=== PATIENT | female | born 1945 | race Caucasian/White ===

== ENCOUNTER 2017-01-03 15:10 | Observation (INO) ==
--- NOTE | 2017-01-03 15:15 | Emergency Department Note ---
Disposition Clinical Impression: Episode of syncope, Non-traumatic compression fracture of T4 thoracic vertebra Disposition: Admitted As Inpatient Condition: Good Dizziness HPI - General Chief Complaint: ED Syncope Stated Complaint: Syncope Time Seen by Provider: 01/03/17 15:12 Nursing Notes Reviewed: Yes Vital Signs Reviewed: Yes - Related Data Home Medications Medication Instructions Recorded Confirmed Lactose-Reduced Food [Ensure 237 ml DAILY 01/28/15 01/03/17 Original] ALPRAZolam [Xanax 1 MG Tablet] 1 mg PO BID 03/02/16 01/03/17 Carbidopa/Levodopa [Carbidopa-Levo 2 each PO TID 03/02/16 01/03/17 25-100 mg Odt] Donepezil [Aricept] 10 mg PO HS 06/29/16 01/03/17 Omeprazole [PriLOSEC] 40 mg PO DAILY 09/14/16 01/03/17 Alendronate Sodium [Alendronate 70 mg PO QWEEK 01/03/17 01/03/17 Sodium] Ondansetron HCl [Ondansetron HCl] 4 mg PO QID PRN 01/03/17 01/03/17 Previous Rx's Medication Instructions Recorded Sertraline [Zoloft] 100 mg PO DAILY #90 tablet 04/10/16 Atorvastatin [Lipitor] 10 mg PO HS #30 tablet 08/15/16 Allergies Allergy/AdvReac Type Severity Reaction Status Date / Time No Known Allergies Allergy Verified 09/14/16 14:17 Past Medical History - Past Medical History Medical history: Reports: arthritis, cancer, COPD, GERD Surgical history: Reports: non-contributory Psychiatric history: Reports: depression - Social History Smoking Status: Former smoker Smokeless Tobacco Status: No Alcohol use: Reports: none Drug use: Reports: none Course Vital Signs Temperature 98.0 F 01/03/17 15:12 Pulse Rate 71 01/03/17 15:12 Respiratory Rate 16 01/03/17 15:12 Blood Pressure 133/77 01/03/17 15:12 O2 Sat by Pulse Oximetry 99 01/03/17 15:12 Temperature 97.4 F L 01/03/17 19:21 Pulse Rate 73 01/03/17 19:21 Respiratory Rate 18 01/03/17 19:21 Blood Pressure 142/81 01/03/17 19:21 O2 Sat by Pulse Oximetry 100 01/03/17 19:21 Oxygen Delivery Oxygen Delivery Room Air Dizziness - MDM Narrative Medical decision making narrative: I examined this patient and my medical decision-making was reviewed with the Resident Physician. I agree with the documented findings, disposition and treatment plan as described except to the extent set forth below. Patient was seen and evaluated on arrival with EMS, and Dr. White, agree with his evaluation and management plan, supervise care the patient's stay. Patient had what sounds like a syncopal episode today she was sitting down and this occurred she has had near-syncopal episodes in the past. Medics said there is small amount of vomit seen. She is having no pain at this time. She denies any abdominal pain she says she woke up feeling okay. We will discuss with her also. Cervical Spine CT 01/03/17 15:15 IMPRESSION: No acute abnormality of the cervical spine. Multilevel degenerative disc disease, spondylosis and facet arthropathy as above. Mild anterior wedge compression fracture T4 of indeterminate age. I favor that this is a remote fracture. D/ / Charles Eisenberg MD / Charles Eisenberg MD Interpreting Provider: Charles Eisenberg MD Chest X-Ray 01/03/17 15:15 IMPRESSION: No acute cardiopulmonary disease. Post radiation change in the right hilar region. D/ / Matthew Fitch MD / Matthew Fitch MD Interpreting Provider: Matthew Fitch MD Head CT 01/03/17 15:15 IMPRESSION: Mild atrophy and mild to moderate chronic small vessel ischemic white matter disease. No acute intracranial abnormality. D/ / Charles Eisenberg MD / Charles Eisenberg MD Interpreting Provider: Charles Eisenberg MD 1650 hrs.: Reviewed her images in her labs. Return to bring her in for syncope. She is in agreement with plan. - Lab Data Result diagrams: 01/03/17 15:44 01/03/17 15:44 Lab Results 01/03/17 01/03/17 01/03/17 Range/Units 15:44 15:44 15:44 WBC 9.6 (4.3-11.1) K/mcL RBC 4.19 (3.82-4.97) M/mcL Hgb 12.5 (11.5-15.4) g/dL Hct 37.5 (35.3-44.9) % MCV 89.5 (83.0-100.0) fL MCH 29.8 (28.0-33.3) pg MCHC 33.3 (31.6-35.5) g/dL RDW 12.8 (11.5-14.5) % Plt Count 396 (140-400) K/mcL MPV 8.0 L (9.4-12.4) fL Immature Gran % 0.4 (0-4) % Seg Neutrophils % 84.5 % Lymphocytes % 8.8 % Monocytes % 5.7 % Eosinophils % 0.2 % Basophils % 0.4 % Neutrophils # 8.1 (1.6-8.9) K/mcL Lymphocytes # 0.9 (0.6-4.6) K/mcL Monocytes # 0.6 (0.0-1.3) K/mcL Eosinophils # 0.0 (0.0-0.6) K/mcL Basophils # 0.0 (0.0-0.2) K/mcL Immature Plt Fraction 0.9 L (1.1-6.1) % D-Dimer (0-500) ng/mLFEU Sodium 134 L (136-145) mEq/L Potassium 4.1 (3.5-4.5) mEq/L Chloride 99 (98-109) mEq/L Carbon Dioxide 24 (19-29) mEq/L BUN 8 (7-20) mg/dL Creatinine 0.76 (0.57-1.11) mg/dL Est GFR ( Amer) > 60 (> 60) Est GFR (Non-Af Amer) > 60 (> 60) BUN/Creatinine Ratio 11 (6-26) Glucose 84 (70-99) mg/dL Calculated Osmolality 276 L (280-300) Calcium 9.4 (8.6-10.8) mg/dL Troponin I 0.00 (0-0.03) ng/mL Urine Color (Yellow) Urine Clarity (Clear) Urine pH (5.0-8.0) pH Units Ur Specific [place] (1.010-1.025) Urine Protein (Neg-Trace) mg/dL Urine Glucose (UA) (Normal) mg/dL Urine Ketones (Negative) mg/dL Urine Blood (Negative) Urine Nitrite (Negative) Urine Bilirubin (Negative) Urine Urobilinogen (Normal) mg/dL Ur Leukocyte Esterase (Negative) Ur Culture Indicated? (NO) 01/03/17 01/03/17 Range/Units 15:44 17:05 WBC (4.3-11.1) K/mcL RBC (3.82-4.97) M/mcL Hgb (11.5-15.4) g/dL Hct (35.3-44.9) % MCV (83.0-100.0) fL MCH (28.0-33.3) pg MCHC (31.6-35.5) g/dL RDW (11.5-14.5) % Plt Count (140-400) K/mcL MPV (9.4-12.4) fL Immature Gran % (0-4) % Seg Neutrophils % % Lymphocytes % % Monocytes % % Eosinophils % % Basophils % % Neutrophils # (1.6-8.9) K/mcL Lymphocytes # (0.6-4.6) K/mcL Monocytes # (0.0-1.3) K/mcL Eosinophils # (0.0-0.6) K/mcL Basophils # (0.0-0.2) K/mcL Immature Plt Fraction (1.1-6.1) % D-Dimer 626 H (0-500) ng/mLFEU Sodium (136-145) mEq/L Potassium (3.5-4.5) mEq/L Chloride (98-109) mEq/L Carbon Dioxide (19-29) mEq/L BUN (7-20) mg/dL Creatinine (0.57-1.11) mg/dL Est GFR ( Amer) (> 60) Est GFR (Non-Af Amer) (> 60) BUN/Creatinine Ratio (6-26) Glucose (70-99) mg/dL Calculated Osmolality (280-300) Calcium (8.6-10.8) mg/dL Troponin I (0-0.03) ng/mL Urine Color Yellow (Yellow) Urine Clarity Clear (Clear) Urine pH 7.5 (5.0-8.0) pH Units Ur Specific [place] 1.009 L (1.010-1.025) Urine Protein Negative (Neg-Trace) mg/dL Urine Glucose (UA) Normal (Normal) mg/dL Urine Ketones Trace H (Negative) mg/dL Urine Blood Negative (Negative) Urine Nitrite Negative (Negative) Urine Bilirubin Negative (Negative) Urine Urobilinogen Normal (Normal) mg/dL Ur Leukocyte Esterase Negative (Negative) Ur Culture Indicated? NO (NO)
--- NOTE | 2017-01-03 15:17 | Emergency Department Note ---
Disposition Clinical Impression: Episode of syncope Qualifiers: Syncope type: unspecified Qualified Code(s): R55 - Syncope and collapse Non-traumatic compression fracture of T4 thoracic vertebra Qualifiers: Encounter type: initial encounter Qualified Code(s): M48.54XA - Collapsed vertebra, not elsewhere classified, thoracic region, initial encounter for fracture Disposition: Admitted As Inpatient Condition: Good Referrals: Aram Jackson MD [Primary Care Provider] - Forms: ED Satisfaction Letter Syncope HPI - General Chief Complaint: ED Syncope Stated Complaint: Syncope Time Seen by Provider: 01/03/17 15:12 Source: patient Mode of arrival: EMS Limitations: no limitations Nursing Notes Reviewed: Yes Vital Signs Reviewed: Yes - History of Present Illness HPI Narrative: 71-year-old female history of hyperlipidemia, GERD who presents to the ER via EMS due to a possible syncopal episode. Patient reports that prior to arrival she felt fine this morning that she was sitting down at her table whenever she felt flushed. Patient reports she woke up on the ground not remembering what happened. EMS was called who reports that there was some vomit on the floor as well. Patient reports that she has felt dizzy before and like she was going to pass out but this is the first time she has ever passed out. She denies any prodromal symptoms of chest pain shortness of breath headaches or visual changes. States she did feel flushed. She reports a past medical history of lung cancer in 2011. No history of DVT or PE. She denies a prior cardiac history. She does take 81 mg of aspirin daily. She reports pain to the back of her head and to the right side of her neck. No other complaints. Pt Subjective Complaint: loss of consciousness Onset (ago): [employer] Duration: other (Unknown) Prodromal Symptoms: other ([place] flushed) Witnessed: no Context: at rest Injuries Sustained Associated with Event: neck, head Current Symptoms: weakness History: none Treatments prior to arrival: none Associated trauma secondary to event: No - Related Data Home Medications Medication Instructions Recorded Confirmed Lactose-Reduced Food [Ensure 237 ml DAILY 01/28/15 11/02/16 Original] ALPRAZolam [Xanax 1 MG Tablet] 1 mg PO Q8H PRN 03/02/16 11/02/16 Carbidopa/Levodopa [Carbidopa-Levo 2 each PO TID 03/02/16 11/02/16 25-100 mg Odt] Donepezil [Aricept] 10 mg PO HS 06/29/16 11/02/16 Ondansetron ODT [Zofran ODT] 4 - 8 mg SL Q8HR PRN 06/29/16 11/02/16 Omeprazole [PriLOSEC] 40 mg PO DAILY 09/14/16 11/02/16 Previous Rx's Medication Instructions Recorded Sertraline [Zoloft] 100 mg PO DAILY #90 tablet 04/10/16 Loratadine [Allergy Relief] 10 mg PO DAILY #30 tablet 04/12/16 Atorvastatin [Lipitor] 10 mg PO HS #30 tablet 08/15/16 Allergies Allergy/AdvReac Type Severity Reaction Status Date / Time No Known Allergies Allergy Verified 09/14/16 14:17 All systems ED: reviewed and negative except as stated. Constitutional: Denies: fever Cardiovascular: Denies: chest pain Respiratory: Denies: cough, dyspnea Gastrointestinal: Denies: abdominal pain, nausea, vomiting Musculoskeletal: Reports: neck pain. Denies: back pain Neurological: Reports: weakness. Denies: headache, numbness, paresthesias Past Medical History - Past Medical History Attestation: Yes The following information was validated with the patient. Source: patient Medical history: Reports: arthritis, cancer, COPD, GERD Surgical history: Reports: non-contributory Psychiatric history: Reports: depression - Social History Smoking Status: Former smoker Smokeless Tobacco Status: No Alcohol use: Reports: none Drug use: Reports: none Physical Exam - General Limitations: no limitations General appearance: alert, in no apparent distress - Head Head exam: atraumatic, normocephalic, normal inspection, other (Pain to the right posterior occipital scalp) - Eye Eye exam: Present: normal appearance, EOMI - ENT ENT exam: normal exam - Neck Neck exam: Present: normal inspection, full ROM, tenderness (Tenderness to the right cervical paraspinal muscles.) - Chest Chest inspection: Present: normal inspection, symmetric chest wall rise - Respiratory Respiratory exam: Present: normal lung sounds bilaterally - Cardiovascular Cardiovascular exam: Present: regular rate, normal rhythm, normal heart sounds - Abdominal Exam Abdominal exam: Present: soft, Non-Tender. Absent: tenderness, distention, rigidity - Extremities Exam Extremities exam: Present: normal inspection, full ROM - Expanded Upper Extremity Exam Shoulder exam: Present: normal inspection, full ROM Arm exam: Present: normal inspection, full ROM Elbow exam: Present: normal inspection, full ROM Forearm/Wrist exam: Present: normal inspection, full ROM Hand exam: Present: normal inspection, full ROM Vascular exam: Normal: radial pulse - Expanded Lower Extremity Exam Hip/Pelvis exam: Present: normal inspection, full ROM Upper leg exam: Present: normal inspection, full ROM Knee exam: Present: normal inspection, full ROM Lower leg exam: Present: normal inspection, full ROM Ankle exam: Present: normal inspection, full ROM Foot/toe exam: Present: normal inspection, full ROM Neurovascular/Tendon exam: Absent: motor deficit, sensory deficit - Back Exam Back exam: Present: normal inspection - Neurological Exam Neurological exam: Present: alert, oriented X3, CN II-XII intact. Absent: motor sensory deficit - Expanded Neurological Exam Patient oriented to: Present: person, place, time Speech: Present: fluid speech Cranial nerves: EOM function (II, III, IV, ): Normal, facial sensation (V): Normal, spinal accessory function (XI): Normal, tongue deviation (XII): Normal Motor strength - LUE: 5/5 Motor strength - RUE: 5/5 Motor strength - LLE: 5/5 Motor strength - RLE: 5/5 Sensory exam upper extremity: light touch: Normal Sensory exam lower extremity: light touch: Normal Coma Scale Eye Opening: Spontaneous Coma Scale Motor Response: Obeys Commands Coma Scale Verbal Response: Oriented Coma Scale Total: 15 - Psychiatric Psychiatric exam: Present: normal affect, normal mood - Skin Skin exam: Present: warm, dry, intact, normal color Course Course Narrative: Patient seen and examined. Vital signs reviewed. She feels back to baseline with the exception of weakness. She is having pain to the posterior aspect of her head. Denies a prior history of syncopal episodes or workup. We will obtain an EKG, labs including troponin and d-dimer given her history of PE. We will also obtain a CT scan of her head. The patient will likely require admission for further evaluation. - Reevaluation(s) Reevaluation #1: I discussed results of imaging and lab work with the patient and family present. We reviewed her CT scan, EKG and lab work. They are in agreement with her being admitted to the hospital for further observation and workup. Vital Signs Temperature 98.0 F 01/03/17 15:12 Pulse Rate 71 01/03/17 15:12 Respiratory Rate 16 01/03/17 15:12 Blood Pressure 133/77 01/03/17 15:12 O2 Sat by Pulse Oximetry 99 01/03/17 15:12 Temperature 98.0 F 01/03/17 15:12 Pulse Rate 64 01/03/17 16:24 Respiratory Rate 16 01/03/17 16:24 Blood Pressure 133/95 01/03/17 16:24 O2 Sat by Pulse Oximetry 99 01/03/17 16:24 Oxygen Delivery Oxygen Delivery Room Air Syncope - MDM Narrative Medical decision making narrative: 71-year-old female presents to the ER due to syncopal episode. She is back to baseline by the time she came to the ED with the exception of weakness. Her EKG is nonischemic. CT head shows no acute abnormality. CT of the cervical spine is unremarkable with a question of a remote fracture of T4 wedge deformity. She has no current neurologic deficits. Her d-dimer is elevated but is within normal limits for age adjustment. Troponin is negative. She is currently chest pain-free. Patient and family in agreement with being admitted for further observation and evaluation. Patient accepted to the hospitalist service. - Lab Data Lab results reviewed: Yes I reviewed the patient's lab results. Result diagrams: 01/03/17 15:44 01/03/17 15:44 Lab Results 01/03/17 01/03/17 01/03/17 Range/Units 15:44 15:44 15:44 WBC 9.6 (4.3-11.1) K/mcL RBC 4.19 (3.82-4.97) M/mcL Hgb 12.5 (11.5-15.4) g/dL Hct 37.5 (35.3-44.9) % MCV 89.5 (83.0-100.0) fL MCH 29.8 (28.0-33.3) pg MCHC 33.3 (31.6-35.5) g/dL RDW 12.8 (11.5-14.5) % Plt Count 396 (140-400) K/mcL MPV 8.0 L (9.4-12.4) fL Immature Gran % 0.4 (0-4) % Seg Neutrophils % 84.5 % Lymphocytes % 8.8 % Monocytes % 5.7 % Eosinophils % 0.2 % Basophils % 0.4 % Neutrophils # 8.1 (1.6-8.9) K/mcL Lymphocytes # 0.9 (0.6-4.6) K/mcL Monocytes # 0.6 (0.0-1.3) K/mcL Eosinophils # 0.0 (0.0-0.6) K/mcL Basophils # 0.0 (0.0-0.2) K/mcL Immature Plt Fraction 0.9 L (1.1-6.1) % D-Dimer (0-500) ng/mLFEU Sodium 134 L (136-145) mEq/L Potassium 4.1 (3.5-4.5) mEq/L Chloride 99 (98-109) mEq/L Carbon Dioxide 24 (19-29) mEq/L BUN 8 (7-20) mg/dL Creatinine 0.76 (0.57-1.11) mg/dL Est GFR ( Amer) > 60 (> 60) Est GFR (Non-Af Amer) > 60 (> 60) BUN/Creatinine Ratio 11 (6-26) Glucose 84 (70-99) mg/dL Calculated Osmolality 276 L (280-300) Calcium 9.4 (8.6-10.8) mg/dL Troponin I 0.00 (0-0.03) ng/mL 01/03/17 Range/Units 15:44 WBC (4.3-11.1) K/mcL RBC (3.82-4.97) M/mcL Hgb (11.5-15.4) g/dL Hct (35.3-44.9) % MCV (83.0-100.0) fL MCH (28.0-33.3) pg MCHC (31.6-35.5) g/dL RDW (11.5-14.5) % Plt Count (140-400) K/mcL MPV (9.4-12.4) fL Immature Gran % (0-4) % Seg Neutrophils % % Lymphocytes % % Monocytes % % Eosinophils % % Basophils % % Neutrophils # (1.6-8.9) K/mcL Lymphocytes # (0.6-4.6) K/mcL Monocytes # (0.0-1.3) K/mcL Eosinophils # (0.0-0.6) K/mcL Basophils # (0.0-0.2) K/mcL Immature Plt Fraction (1.1-6.1) % D-Dimer 626 H (0-500) ng/mLFEU Sodium (136-145) mEq/L Potassium (3.5-4.5) mEq/L Chloride (98-109) mEq/L Carbon Dioxide (19-29) mEq/L BUN (7-20) mg/dL Creatinine (0.57-1.11) mg/dL Est GFR ( Amer) (> 60) Est GFR (Non-Af Amer) (> 60) BUN/Creatinine Ratio (6-26) Glucose (70-99) mg/dL Calculated Osmolality (280-300) Calcium (8.6-10.8) mg/dL Troponin I (0-0.03) ng/mL - Radiology Data Radiology results reviewed: Yes I reviewed the patient's radiology results. Cervical Spine CT 01/03/17 15:15 IMPRESSION: No acute abnormality of the cervical spine. Multilevel degenerative disc disease, spondylosis and facet arthropathy as above. Mild anterior wedge compression fracture T4 of indeterminate age. I favor that this is a remote fracture. D/ / Charles Eisenberg MD / Charles Eisenberg MD Interpreting Provider: Charles Eisenberg MD Chest X-Ray 01/03/17 15:15 IMPRESSION: No acute cardiopulmonary disease. Post radiation change in the right hilar region. D/ / Matthew Fitch MD / Matthew Fitch MD Interpreting Provider: Matthew Fitch MD Head CT 01/03/17 15:15 IMPRESSION: Mild atrophy and mild to moderate chronic small vessel ischemic white matter disease. No acute intracranial abnormality. D/ / Charles Eisenberg MD / Charles Eisenberg MD Interpreting Provider: Charles Eisenberg MD - EKG Data EKG attestation: Yes I reviewed and interpreted this EKG. EKG results narrative: EKG demonstrates normal sinus rhythm with a rate of 68 bpm. Normal axis. QTC slightly prolonged at 465. No ST elevations or depressions. No acute ischemic findings. S.B.ADanae - Eric Situation: Demographics, MOA Background: Presenting Complaint, Relevant PMH, Meds, & Allergies Assessment: Vital Signs, Course and respsone to treatment, Exam Concerns, Patient/Family Expectation, Pertinant Lab Results, Outstanding Labs Recommendation: Barrier(s) to disposition, Recommendation based on pending studies, treatments, or consults S.B.A.RKyle Report Given to: Sheila Reyes Repor Time: 17:21
[2017-01-03 15:50] LABS: Basophils % 0.4 %; Eosinophils % 0.2 %; Hematocrit 37.5 % (35.3-44.9); Hemoglobin 12.5 g/dL (11.5-15.4); Immature Granulocytes % 0.4 % (0-4); Immature Platelets 0.9 % (1.1-6.1); Lymphocytes # 0.9 K/mcL (0.6-4.6); Lymphocytes % 8.8 %; Mean Corpuscular HGB Conc 33.3 g/dL (31.6-35.5); Mean Corpuscular Hemoglobin 29.8 pg (28.0-33.3); Mean Corpuscular Volume 89.5 fL (83.0-100.0); Monocytes # 0.6 K/mcL (0.0-1.3); Monocytes % 5.7 %; Neutrophils # 8.1 K/mcL (1.6-8.9); Platelet Count 396 K/mcL (140-400); Red Blood Count 4.19 M/mcL (3.82-4.97); Red Cell Distribution Width 12.8 % (11.5-14.5); Segmented Neutrophils % 84.5 %
[2017-01-03] MEDS ORDERED: 0.9 % Sodium Chloride 1,000 ML IVC ONE (15:56)
[2017-01-03 16:07] LABS: BUN/Creatinine Ratio 11 (6-26); Blood Urea Nitrogen 8 mg/dL (7-20); Calcium 9.4 mg/dL (8.6-10.8); Carbon Dioxide 24 mEq/L (19-29); Chloride 99 mEq/L (98-109); Glucose 84 mg/dL (70-99); Osmolality,Calculated 276 (280-300); Potassium 4.1 mEq/L (3.5-4.5); Sodium 134 mEq/L (136-145); eGFR For African Americans > 60 (> 60); eGFR For Non-African Americans > 60 (> 60)
[2017-01-03 17:15] LABS: Bilirubin,Urine Negative (Negative); Blood,Urine Negative (Negative); Clarity,Urine Clear (Clear); Color,Urine Yellow (Yellow); Glucose,Urine (UA) Normal (Normal); Ketones,Urine Trace mg/dL (Negative); Leukocyte Esterase,Urine Negative (Negative); Nitrite,Urine Negative (Negative); PH,Urine 7.5 pH Units (5.0-8.0); Protein,Urine Negative (Neg-Trace); Specific Gravity,Urine 1.009 (1.010-1.025); Urobilinogen,Urine Normal (Normal)
[2017-01-03] MEDS ORDERED: Ondansetron ODT 4 MG TAB.RAPDIS PO PRN (22:21)
[2017-01-03] MEDS ORDERED: Naloxone 0.4 MG/ML INJ IVP PRN (22:22)
--- NOTE | 2017-01-03 22:31 | Internal Med History&Physical ---
Date of Encounter: 01/03/17 Time of Encounter: 22:27 Assessment and Plan (1) Episode of syncope Current visit: Yes Status: Acute check orthostat, check MRI brain w contrast given hx of SCLC, tele, consider holter pending hospital course Qualifiers: Syncope type: unspecified Qualified Code(s): R55 - Syncope and collapse (2) Parkinson disease Current visit: Yes Status: Acute continue sinemet. Monitor. Doubt related to presentation (3) Depression Current visit: Yes Status: Acute continue med. stable Qualifiers: Major depression recurrence: single episode Active/Remission status: currently active Psychotic features: without psychotic features Qualified Code(s): F32.2 - Major depressive disorder, single episode, severe without psychotic features (4) Dementia Current visit: Yes Status: Acute stable Qualifiers: Dementia type: Alzheimer's disease Qualified Code(s): G30.0 - Alzheimer's disease with early onset; F02.81 - Dementia in other diseases classified elsewhere with behavioral disturbance (5) Small cell lung cancer Current visit: Yes Status: Acute on surveillance, MRI above Qualifiers: Laterality: unspecified laterality Qualified Code(s): C34.90 - Malignant neoplasm of unspecified part of unspecified bronchus or lung Internal Medicine - H&P: HPI Chief complaint: Syncope History of present illness: Ms. Harrison is a 71 year old female with hx of reported SCLC s/p chem-RT to chest and what was described as prophylactic WBRT in [id number], depression, parkinsonism, osteoporosis who preesnts with syncope episode. She was at home today and was sitting around her table when she had a non- specific symptoms of "not feeling well". She later described a "pain around the back of her shoulder and base of the neck before getting real hot/warm". She was unable to recall events after but later found herself lying on the floor with non-bloody emesis on her clothes. She denies any cardiac hx. On review, he notes of being sick in the last several months lately. Her neurologist for her parkinson's is Dr Sanchez EKG rate 68, NSR C-spin CT CXR CT head w/o contrast all w/o acute changes Past Med Surg Social Fam HX - Past Medical History Medical history: arthritis, cancer, COPD, GERD Psychiatric history: depression - Past Surgical History Surgical History: non-contributory - Social History Smoking Status: Former smoker Smokeless Tobacco Status: No Alcohol use: none Drug use: none - Family History Mother Living Status: Still Living Hx Family Endocrine Disorder: Yes (DM) Father Living Status: Hx Family Cardiac Disorders: Yes Maternal Grandmother Living Status: Hx Family Cardiac Disorders: Yes Internal Medicine - H&P: Meds Lactose-Reduced Food [Ensure Original] 237 ml DAILY 01/28/15 [History] ALPRAZolam [Xanax 1 MG Tablet] 1 mg PO BID 03/02/16 [History] Carbidopa/Levodopa [Carbidopa-Levo 25-100 mg Odt] 2 each PO TID 03/02/16 [ History] Sertraline [Zoloft] 100 mg PO DAILY #90 tablet 04/10/16 [Rx] Donepezil [Aricept] 10 mg PO HS 06/29/16 [History] Atorvastatin [Lipitor] 10 mg PO HS #30 tablet 08/15/16 [Rx] Omeprazole [PriLOSEC] 40 mg PO DAILY 09/14/16 [History] Alendronate Sodium [Alendronate Sodium] 70 mg PO QWEEK 01/03/17 [History] Ondansetron HCl [Ondansetron HCl] 4 mg PO QID PRN 01/03/17 [History] 3 Allergy/AdvReac Type Severity Reaction Status Date / Time No Known Allergies Allergy Verified 09/14/16 14:17 All Systems PM: A 10-system review of systems was performed and is negative for pertinent findings except as documented above in the HPI. Review of systems: ROS 14 point review of systems reviewed as best as possible given presentation. Pertinent positive or negative as per HPI or otherwise reviewed as negative - Constitutional Vitals: Temp Pulse Resp BP Pulse Ox 97.4 F L 73 18 142/81 100 01/03/17 19:21 01/03/17 19:21 01/03/17 19:21 01/03/17 19:21 01/03/17 19:21 Exam: General - AAO x 3 Psych - Appropriate affect/speech. No agitation Eyes - TATYANA. Eye lids intact. No scleral icterus ENT - Oral mucosa pink, dentition intact. External ear clear/dry/intact. No thyromegaly Lymphatics - No cervical/inguinal lympadenopathy Neuro - No gross peripheral or central neuro deficits with intact CN 2-12 exam Heart - Sinus. RRR. S1 and S2 present. No added HS/murmurs appreciated. No elevated JVD appreciated. No calf swellings/erythema Lung - Adequate air entry b/l, No crackes/wheezes appreciated GI - Soft, non-tender. No hepatosplenomegaly/ascites. BS+ - No CVA/suprapubic tenderness or palpable bladder distension Skin - Intact. No rash/petechiae/ecchymosis. Warm extremities MSK - Joints with normal ROM. No joint swellings Internal Med - H&P Results - Labs CBC & Chem 7: 01/03/17 15:44 01/03/17 15:44
[2017-01-03] MEDS: 0.9 % Sodium Chloride 1,000 ML IVC SCH (23:03)
[2017-01-03] MEDS: Carbidopa/Levodopa 25/100 TABLET PO SCH (23:03)
[2017-01-03] MEDS: ALPRAZolam 1 MG TABLET PO SCH (23:03)
[2017-01-04] MEDS: *HR* Enoxaparin 30 MG/0.3 ML SYRINGE SQ SCH (06:16)
[2017-01-04 06:38] LABS: Eosinophils % 2.5 %; Immature Granulocytes % 0.4 % (0-4); Lymphocytes % 27.6 %; Mean Corpuscular HGB Conc 33.9 g/dL (31.6-35.5); Mean Corpuscular Hemoglobin 30.2 pg (28.0-33.3); Mean Corpuscular Volume 89.1 fL (83.0-100.0); Mean Platelet Volume 8.2 fL (9.4-12.4); Monocytes % 12.4 %; Platelet Count 282 K/mcL (140-400); Red Blood Count 3.48 M/mcL (3.82-4.97); Segmented Neutrophils % 56.2 %
[2017-01-04 06:39] LABS: Basophils # 0.1 K/mcL (0.0-0.2); Basophils % 0.9 %; Eosinophils # 0.1 K/mcL (0.0-0.6); Lymphocytes # 1.5 K/mcL (0.6-4.6); Monocytes # 0.7 K/mcL (0.0-1.3); Neutrophils # 3.1 K/mcL (1.6-8.9)
[2017-01-04 06:42] LABS: Hemoglobin 10.5 g/dL (11.5-15.4)
[2017-01-04 07:18] LABS: Albumin/Globulin Ratio 1.2 (1.1-2.2); Alkaline Phosphatase 92 Units/L (38-126); Aspartate Amino Transferase 18 Units/L (5-34); BUN/Creatinine Ratio 13 (6-26); Blood Urea Nitrogen 9 mg/dL (7-20); Calcium 8.1 mg/dL (8.6-10.8); Carbon Dioxide 23 mEq/L (19-29); Chloride 106 mEq/L (98-109); Globulin 2.6 g/dL (2.4-3.5); Glucose 76 mg/dL (70-99); Magnesium 1.9 mg/dL (1.6-2.6); Osmolality,Calculated 283 (280-300); Sodium 138 mEq/L (136-145); Total Protein 5.6 g/dL (6.0-8.3); eGFR For African Americans > 60 (> 60); eGFR For Non-African Americans > 60 (> 60)
[2017-01-04 07:19] LABS: Alanine Aminotransferase < 6 Units/L (0-55); Bilirubin,Total < 0.3 mg/dL (0.2-1.2)
[2017-01-04] MEDS ORDERED: ALPRAZolam 1 MG TABLET PO SCH (09:00)
[2017-01-04] MEDS ORDERED: Carbidopa/Levodopa 25/100 TABLET PO SCH (09:00)
[2017-01-04] MEDS: ALPRAZolam 1 MG TABLET PO SCH ×2 (09:03→20:28)
[2017-01-04] MEDS: Carbidopa/Levodopa 25/100 TABLET PO SCH ×3 (09:03→20:36)
[2017-01-04] MEDS: 0.9 % Sodium Chloride 1,000 ML IVC SCH ×2 (09:04→20:28)
--- NOTE | 2017-01-04 09:11 | Internal Med Progress Note ---
<Luis Yang - Last Filed: 01/04/17 14:44> Date of Encounter: 01/04/17 Time of Encounter: 12:00 - Assessment and plan (1) Episode of syncope Current Visit: Yes Status: Acute Assessment and plan: Likely secondary to dehydration 2/2 Vomiting, poor PO intake Patient had CT Head, MRI head, Echo, CT C spine, EKG, and CXR all with out acute changes. Patient had orthostatics performed which were negative. Patient had carotid U/S 1 year ago which showed no plaque so was not repeated this admission. Qualifiers: Syncope type: unspecified Qualified Code(s): R55 - Syncope and collapse (2) Nausea & vomiting Current Visit: Yes Status: Acute Assessment and plan: Patient and daughter report she has been nauseated and vomiting for several months Per [facility] chart rview patient was first seen for this issue in April 2016. She was started on Zofran at that time. Patient had previously been on nexium for this issue with out relief. She reports Zofran has not fixed her problem. Currently on Zofran here in the hospital andhas not been nauseated or vomited. Consider switch in medication. Would avoid Phenergan, reglan, and compazine due to interactions with sinemet. alternatives include aprepitant, dolasetron, or Granisetron However these are expensive. Daughter concerned about Gallbladder since she herself had gallbladder issues, since the N is worsened by food, and since patient has pain in her back. Patient does have some tenderness to palpation in RUQ. Avalos's Sign negative. Consider abd U/S if pain worsens or if N/V return. Qualifiers: Vomiting type: unspecified Vomiting Intractability: unspecified Qualified Code(s): R11.2 - Nausea with vomiting, unspecified (3) Parkinson disease Current Visit: Yes Status: Acute Assessment and plan: Chronic, Stable Continue home meds. (4) Depression Current Visit: Yes Status: Acute Assessment and plan: Chronic Stable Continue home meds Qualifiers: Major depression recurrence: single episode Active/Remission status: currently active Psychotic features: without psychotic features Qualified Code(s): F32.2 - Major depressive disorder, single episode, severe without psychotic features (5) Dementia Current Visit: Yes Status: Acute Assessment and plan: Chronic, Stable. Continue aricept Qualifiers: Dementia type: Alzheimer's disease Qualified Code(s): G30.0 - Alzheimer's disease with early onset; F02.81 - Dementia in other diseases classified elsewhere with behavioral disturbance (6) Small cell lung cancer Current Visit: Yes Status: Acute Assessment and plan: History of SCLC. S/P Chemo and radiation [id number] No mets seen on MRI of brain post radiation changes on CXR. Qualifiers: Laterality: unspecified laterality Qualified Code(s): C34.90 - Malignant neoplasm of unspecified part of unspecified bronchus or lung - Subjective Interval history: 71F c PMHx of Parkinsons, Arthritis, COPD, GERD, Depression, SCLC s/p Chemo/ Radiation in 2013 in remission, reports to the hospital for Syncopal episode that happened yesterday. She was at home alone, she felt lightheaded like she was going to pass out, she sat down and reports thinking of lying down on the couch, but the next thing she remembered she was on the floor and there was vomit on the ground. She is not sure how long she was out. She denies blood in the vomit. The patient reports she has had Nausea and Vomiting for several months and has had poor PO intake. She has also had lots of falls per the daughter. Patient also reports numbness and tingling in her b/l hands but reports this is chronic and has been going on for a long time (per [facility] neurology has Dx her with carapal tunnel). She denies Urinary symptoms, diarrhea , fever, chest pain, abdominal pain, visual changes, incontinence. Today patient is feeling much better. She has not been nauseated nor has she vomited since coming to the hospital. - Constitutional Vitals: Temp Pulse Resp BP Pulse Ox 97.9 F 72 17 130/69 96 01/04/17 07:00 01/04/17 07:00 01/04/17 07:00 01/04/17 07:00 01/04/17 07:00 General appearance: Present: A&O X 3, no acute distress, answers questions appropriately - Head Head exam: Present: atraumatic, normocephalic - Eye Eye exam: Present: EOMI, sclera anicteric Pupils: Present: miosis (b/l), PERRL - ENT ENT exam: Present: mucous membranes moist - Neck Neck exam general surgery: Present: supple, trachea midline - Respiratory Respiratory exam: Present: CTAB. Absent: rales, rhonchi, wheezes - Cardiovascular Cardiovascular exam: Present: RRR, +S1, +S2. Absent: diastolic murmur, gallop, rubs, systolic murmur - GI/Abdominal GI/Abdominal exam: Present: normal bowel sounds, soft, tenderness (mild tenderness to palpation int he RUQ, and suprapubic) - Extremities Exam Extremities exam: Absent: cyanotic, pedal edema, tenderness - Neurological Exam Neurological exam: Present: alert, CN II-XII intact, oriented X3, strengths equal and symetr throughout. Absent: facial droop, speech deficit - Psychiatric Psychiatric exam: Present: normal affect, normal mood - Skin Skin exam: Present: dry, intact, warm Internal Medicine: Result - Labs CBC & Chem 7: 01/04/17 06:05 01/04/17 06:05 Labs: Short CBC 01/04/17 Range/Units 06:05 WBC 5.6 (4.3-11.1) K/mcL Hgb 10.5 L D (11.5-15.4) g/dL Hct 31.0 L (35.3-44.9) % Plt Count 282 (140-400) K/mcL Neutrophils # 3.1 (1.6-8.9) K/mcL BMP 01/04/17 06:05 Sodium 138 Potassium 4.0 Chloride 106 Carbon Dioxide 23 BUN 9 Creatinine 0.68 Glucose 76 Calcium 8.1 L Liver Function 01/04/17 Range/Units 06:05 Total Bilirubin < 0.3 (0.2-1.2) mg/dL AST 18 (5-34) Units/L ALT < 6 (0-55) Units/L Alkaline Phosphatase 92 (38-126) Units/L Albumin 3.0 L (3.5-5.0) g/dL - ABG Interpretation ABG results: PT/INR, D-dimer D-Dimer 626 ng/mLFEU (0-500) H 01/03/17 15:44 Consult Discharge Plan - Plan Referrals: Aram Jackson MD [Primary Care Provider] - 01/11/17 2:15 pm <Azam Hastings P - Last Filed: 01/04/17 18:41> Date of Encounter: 01/04/17 - Constitutional Vitals: Temp Pulse Resp BP Pulse Ox 97.5 F L 70 16 118/72 100 01/04/17 18:23 01/04/17 18:23 01/04/17 18:23 01/04/17 18:23 01/04/17 18:23 Internal Medicine: Result - Labs CBC & Chem 7: 01/04/17 06:05 01/04/17 06:05 Labs: Short CBC 01/04/17 Range/Units 06:05 WBC 5.6 (4.3-11.1) K/mcL Hgb 10.5 L D (11.5-15.4) g/dL Hct 31.0 L (35.3-44.9) % Plt Count 282 (140-400) K/mcL Neutrophils # 3.1 (1.6-8.9) K/mcL BMP 01/04/17 06:05 Sodium 138 Potassium 4.0 Chloride 106 Carbon Dioxide 23 BUN 9 Creatinine 0.68 Glucose 76 Calcium 8.1 L Liver Function 01/04/17 Range/Units 06:05 Total Bilirubin < 0.3 (0.2-1.2) mg/dL AST 18 (5-34) Units/L ALT < 6 (0-55) Units/L Alkaline Phosphatase 92 (38-126) Units/L Albumin 3.0 L (3.5-5.0) g/dL - ABG Interpretation ABG results: PT/INR, D-dimer D-Dimer 626 ng/mLFEU (0-500) H 01/03/17 15:44 - Impressions Impressions Brain MRI 01/04/17 07:54 IMPRESSION: No acute intracranial abnormality. No mass lesion or abnormal intracranial enhancement to suggest intracranial metastasis. Mild to moderate parenchymal volume loss. Mild to moderate chronic microvascular disease. Mild bilateral mastoid effusions and sinus mucosal disease. D/ / Neo Short MD / Neo Short MD Interpreting Provider: Neo Short MD - Attending Attestation I examined this patient and my medical decision-making was reviewed with the Resident Physician. I agree with the documented findings, disposition and treatment plan as described except to the extent set forth below.
[2017-01-05 03:29] LABS: Hematocrit 30.5 % (35.3-44.9); Hemoglobin 10.3 g/dL (11.5-15.4); Mean Corpuscular HGB Conc 33.8 g/dL (31.6-35.5); Mean Corpuscular Hemoglobin 30.2 pg (28.0-33.3); Mean Corpuscular Volume 89.4 fL (83.0-100.0); Mean Platelet Volume 8.7 fL (9.4-12.4); Platelet Count 273 K/mcL (140-400); Red Blood Count 3.41 M/mcL (3.82-4.97); Red Cell Distribution Width 13.1 % (11.5-14.5)
[2017-01-05] MEDS: 0.9 % Sodium Chloride 1,000 ML IVC SCH ×3 (03:40→14:52)
[2017-01-05 03:46] LABS: BUN/Creatinine Ratio 11 (6-26); Blood Urea Nitrogen 8 mg/dL (7-20); Calcium 8.3 mg/dL (8.6-10.8); Carbon Dioxide 24 mEq/L (19-29); Chloride 106 mEq/L (98-109); Glucose 84 mg/dL (70-99); Osmolality,Calculated 282 (280-300); Potassium 3.7 mEq/L (3.5-4.5); Sodium 137 mEq/L (136-145); eGFR For African Americans > 60 (> 60); eGFR For Non-African Americans > 60 (> 60)
[2017-01-05] MEDS: *HR* Enoxaparin 30 MG/0.3 ML SYRINGE SQ SCH (05:32)
[2017-01-05] MEDS: Carbidopa/Levodopa 25/100 TABLET PO SCH ×3 (08:07→20:43)
[2017-01-05] MEDS: ALPRAZolam 1 MG TABLET PO SCH ×2 (08:07→20:43)
--- NOTE | 2017-01-05 08:45 | Electrocardiograph Report ---
[address] [place], [place] [address] Test Date: 2017-01-03 Pat Name: Post Department: 102 Room: 3B14 Gender: F Nutrition Services Assistant: Gautam : 1945 Requested By: Glenroy Wihte Order Number: [id number] Reading MD: Maxim Hoover MD Measurements Intervals [place] Rate: 68 P: 53 CT: 178 QRS: 25 QRSD: 105 T: 48 QT: 449 QTc: 465 Interpretive Statements SINUS RHYTHM Electronically Signed On 01-05-2017 8:43:38 EDT by Maxim Hoover MD
--- NOTE | 2017-01-05 10:29 | Internal Med Progress Note ---
<Luis Yang - Last Filed: 01/05/17 15:14> Date of Encounter: 01/05/17 Time of Encounter: 09:45 - Assessment and plan (1) Episode of syncope Current Visit: Yes Status: Acute Assessment and plan: Likely secondary to dehydration 2/2 Vomiting, poor PO intake Patient had CT Head, MRI head, Echo, CT C spine, EKG, and CXR all with out acute changes. Patient had orthostatics performed which were negative. Patient had carotid U/S 1 year ago which showed no plaque so was not repeated this admission. Qualifiers: Syncope type: unspecified Qualified Code(s): R55 - Syncope and collapse (2) Nausea & vomiting Current Visit: Yes Status: Acute Assessment and plan: Chronic. Unclear etiology. Sounds like reflux based on story. No hiatal hernia seen on CXR. Patient and daughter report she has been nauseated and vomiting for several months Per [facility] chart rview patient was first seen for this issue in April 2016. She was started on Zofran at that time. Patient had previously been on nexium for this issue with out relief. She reports Zofran has not fixed her problem. Patient Consider switch in medication. Would avoid Phenergan, reglan, and compazine due to interactions with sinemet. alternatives include aprepitant, dolasetron, or Granisetron However these are expensive. Consider Pyridoxine if zofran continues to not work. Daughter concerned about Gallbladder since she herself had gallbladder issues, since the N is worsened by food, and since patient has pain in her back. Patient does have some tenderness to palpation in RUQ. Avalos's Sign negative. Will obtain abd U/S since N/V has returned. Will d/c home tomorrow if negative. Will need outpatient GI follow up. Qualifiers: Vomiting type: unspecified Vomiting Intractability: unspecified Qualified Code(s): R11.2 - Nausea with vomiting, unspecified (3) Parkinson disease Current Visit: Yes Status: Acute Assessment and plan: Chronic, Stable -Continue home meds. (4) Depression Current Visit: Yes Status: Acute Assessment and plan: Chronic Stable -Continue home meds Qualifiers: Depression Type: major depressive disorder Major depression recurrence: single episode Active/Remission status: currently active Major depression episode severity: severe Psychotic features: without psychotic features Qualified Code(s): F32.2 - Major depressive disorder, single episode, severe without psychotic features (5) Dementia Current Visit: Yes Status: Acute Assessment and plan: Chronic, Stable. -Continue aricept Qualifiers: Dementia type: Alzheimer's disease Alzheimer's disease onset: unspecified onset Dementia behavioral disturbance: without behavioral disturbance Qualified Code(s): G30.9 - Alzheimer's disease, unspecified; F02.80 - Dementia in other diseases classified elsewhere without behavioral disturbance (6) Small cell lung cancer Current Visit: Yes Status: Acute Assessment and plan: -History of SCLC. S/P Chemo and radiation [id number] -No mets seen on MRI of brain -post radiation changes on CXR. Qualifiers: Laterality: unspecified laterality Qualified Code(s): C34.90 - Malignant neoplasm of unspecified part of unspecified bronchus or lung - Subjective Interval history: Patient reports feeling worse than yesterday. Her Nausea has returned and she spit up a small amount. Patient feels week and family reports she does not seem 100% and are concerned about her gallbladder. - Constitutional Vitals: Temp Pulse Resp BP Pulse Ox 97.7 F 62 14 123/83 99 01/05/17 06:39 01/05/17 06:39 01/05/17 06:39 01/05/17 06:39 01/05/17 06:39 General appearance: Present: A&O X 3, no acute distress, answers questions appropriately - Head Head exam: Present: atraumatic, normocephalic - Eye Eye exam: Present: PERRL, sclera anicteric - ENT ENT exam: Present: mucous membranes moist - Neck Neck exam general surgery: Present: supple, trachea midline - Respiratory Respiratory exam: Present: CTAB. Absent: rales, rhonchi, wheezes - Cardiovascular Cardiovascular exam: Present: RRR, +S1, +S2. Absent: diastolic murmur, gallop, rubs, systolic murmur - GI/Abdominal GI/Abdominal exam: Present: normal bowel sounds, soft, tenderness (mild suprapubic and RUQ) - Extremities Exam Extremities exam: Absent: calf tenderness, cyanotic, pedal edema - Neurological Exam Neurological exam: Present: alert, CN II-XII intact, oriented X3, no focal deficits, strengths equal and symetr throughout. Absent: facial droop, speech deficit - Psychiatric Psychiatric exam: Present: normal affect, normal mood - Skin Skin exam: Present: dry, intact, warm Internal Medicine: Result - Labs CBC & Chem 7: 01/05/17 02:32 01/05/17 02:32 Labs: Short CBC 01/05/17 Range/Units 02:32 WBC 5.8 (4.3-11.1) K/mcL Hgb 10.3 L (11.5-15.4) g/dL Hct 30.5 L (35.3-44.9) % Plt Count 273 (140-400) K/mcL BMP 01/05/17 02:32 Sodium 137 Potassium 3.7 Chloride 106 Carbon Dioxide 24 BUN 8 Creatinine 0.72 Glucose 84 Calcium 8.3 L - ABG Interpretation ABG results: PT/INR, D-dimer D-Dimer 626 ng/mLFEU (0-500) H 01/03/17 15:44 - Impressions Impressions Brain MRI 01/04/17 07:54 IMPRESSION: No acute intracranial abnormality. No mass lesion or abnormal intracranial enhancement to suggest intracranial metastasis. Mild to moderate parenchymal volume loss. Mild to moderate chronic microvascular disease. Mild bilateral mastoid effusions and sinus mucosal disease. D/ / Neo Short MD / Neo Short MD Interpreting Provider: Neo Short MD Consult Discharge Plan - Plan Referrals: Aram Jackson MD [Primary Care Provider] - 01/11/17 2:15 pm <Azam Hastings P - Last Filed: 01/05/17 18:20> Date of Encounter: 01/05/17 - Constitutional Vitals: Temp Pulse Resp BP Pulse Ox 98.1 F 67 14 131/79 98 01/05/17 14:38 01/05/17 14:38 01/05/17 14:38 01/05/17 14:38 01/05/17 14:38 Internal Medicine: Result - Labs CBC & Chem 7: 01/05/17 02:32 01/05/17 02:32 Labs: Short CBC 01/05/17 Range/Units 02:32 WBC 5.8 (4.3-11.1) K/mcL Hgb 10.3 L (11.5-15.4) g/dL Hct 30.5 L (35.3-44.9) % Plt Count 273 (140-400) K/mcL BMP 01/05/17 02:32 Sodium 137 Potassium 3.7 Chloride 106 Carbon Dioxide 24 BUN 8 Creatinine 0.72 Glucose 84 Calcium 8.3 L - ABG Interpretation ABG results: PT/INR, D-dimer D-Dimer 626 ng/mLFEU (0-500) H 01/03/17 15:44 - Impressions Impressions Gallbladder Ultrasound 01/05/17 15:00 IMPRESSION: Normal right upper quadrant ultrasound. D/ / Estevan Chaidez MD / Estevan Chaidez MD Interpreting Provider: Estevan Chaidze MD - Attending Attestation I examined this patient and my medical decision-making was reviewed with the Resident Physician. I agree with the documented findings, disposition and treatment plan as described except to the extent set forth below.
[2017-01-06] MEDS: 0.9 % Sodium Chloride 1,000 ML IVC SCH (01:00)
[2017-01-06] MEDS: *HR* Enoxaparin 30 MG/0.3 ML SYRINGE SQ SCH (06:22)
[2017-01-06 07:25] VITALS: BP 131/73
--- NOTE | 2017-01-06 07:30 | Discharge Summary ---
<Luis Yang - Last Filed: 01/06/17 08:16> Date of Encounter: 01/06/17 Time of Encounter: 08:00 - Discharge Diagnosis (1) Episode of syncope Priority: Primary Status: Acute Qualifiers: Syncope type: unspecified Qualified Code(s): R55 - Syncope and collapse (2) Nausea & vomiting Priority: Secondary Status: Chronic Qualifiers: Vomiting type: unspecified Vomiting Intractability: unspecified Qualified Code(s): R11.2 - Nausea with vomiting, unspecified (3) Parkinson disease Priority: Secondary Status: Chronic (4) Depression Priority: Secondary Status: Chronic Qualifiers: Depression Type: major depressive disorder Major depression recurrence: single episode Active/Remission status: currently active Major depression episode severity: severe Psychotic features: without psychotic features Qualified Code(s): F32.2 - Major depressive disorder, single episode, severe without psychotic features (5) Dementia Priority: Secondary Status: Chronic Qualifiers: Dementia type: Alzheimer's disease Alzheimer's disease onset: unspecified onset Dementia behavioral disturbance: without behavioral disturbance Qualified Code(s): G30.9 - Alzheimer's disease, unspecified; F02.80 - Dementia in other diseases classified elsewhere without behavioral disturbance (6) Small cell lung cancer Priority: Secondary Status: Chronic Qualifiers: Laterality: unspecified laterality Qualified Code(s): C34.90 - Malignant neoplasm of unspecified part of unspecified bronchus or lung - Discharge Medications Home Medications: Lactose-Reduced Food [Ensure Original] 237 ml DAILY 01/28/15 [History] ALPRAZolam [Xanax 1 MG Tablet] 1 mg PO BID 03/02/16 [History] Carbidopa/Levodopa [Carbidopa-Levo 25-100 mg Odt] 2 each PO TID 03/02/16 [ History] Sertraline [Zoloft] 100 mg PO DAILY #90 tablet 04/10/16 [Rx] Donepezil [Aricept] 10 mg PO HS 06/29/16 [History] Atorvastatin [Lipitor] 10 mg PO HS #30 tablet 08/15/16 [Rx] Omeprazole [PriLOSEC] 40 mg PO DAILY 09/14/16 [History] Alendronate Sodium 70 mg PO QWEEK 01/03/17 [History] Ondansetron HCl 4 mg PO QID PRN 01/03/17 [History] Allergies/Adverse Reactions: 3 Allergy/AdvReac Type Severity Reaction Status Date / Time No Known Allergies Allergy Verified 09/14/16 14:17 Procedures/tests Complete & Pending: Procedures Performed prior 72 hours Category Date Time Status GB ultrasound [US gall bladder] [US] Routine Exams 01/05/17 15:00 Completed MR head/brain wo/w con [MR] Routine MRI 01/04/17 07:54 Completed EV echocardiogram Routine Y 01/04/17 22:[address] C-Spine: "FINDINGS: BONES/ALIGNMENT: There is mild anterior wedge configuration of T4 and there is a minimal degenerative anterolisthesis of T3 on T4. Cervical vertebral body heights and alignment are normal. No evidence of an acute cervical spine fracture. Facet joints are normally aligned. DEGENERATIVE CHANGES: There are degenerative changes throughout the cervical spine. At C3-C4, there is moderate disc space narrowing with mild diffuse spondylosis. There is mild disc space narrowing at C4-C5. There is moderate disc space narrowing and moderate diffuse spondylosis at C5-C6 and C6-C7. There is a broad-based mixed protrusion C5-C6 causing minimal mass effect on the cervical spinal cord. There is multilevel facet arthropathy most pronounced in the mid cervical spine and in the upper thoracic spine. SOFT TISSUES: There is no prevertebral soft tissue swelling. CT/CT cervical spine wo con IMPRESSION: No acute abnormality of the cervical spine. Multilevel degenerative disc disease, spondylosis and facet arthropathy as above. Mild anterior wedge compression fracture T4 of indeterminate age. I favor that this is a remote fracture." Ct Head: "FINDINGS: BRAIN/VENTRICLES: There is mild generalized atrophy. Mild to moderate patchy periventricular and subcortical white matter low attenuation that is nonspecific but likely related to chronic small vessel ischemia. There is no evidence of acute hemorrhage, mass or extra-axial fluid collection. ORBITS: The visualized portion of the orbits demonstrate no acute abnormality. SINUSES: Mild mucosal thickening in the posterior left maxillary sinus. Paranasal sinuses are otherwise clear. Mastoids are clear. SOFT TISSUES/SKULL: No acute abnormality of the visualized skull or soft tissues. CT/CT head/brain wo con IMPRESSION: Mild atrophy and mild to moderate chronic small vessel ischemic white matter disease. No acute intracranial abnormality." CXR: "FINDINGS: Cardiac and mediastinal contours are unchanged. Spiculated density in the right hilum with linear opacity adjacent to it is unchanged from the prior examination. This is favored to represent post radiation change. No new consolidation noted. No pleural effusion or pneumothorax. XR/XR chest 1V portable IMPRESSION: No acute cardiopulmonary disease. Post radiation change in the right hilar region." Brain MRI: "FINDINGS: INTRACRANIAL STRUCTURES/VENTRICLES: There is mild to moderate parenchymal volume loss. There are scattered foci of periventricular and subcortical white matter T2/FLAIR hyperdensity, likely related to mild to moderate chronic microvascular disease. There is no acute infarct. No mass effect or midline shift. No abnormal extra-axial fluid collection or hydrocephalus. The sella/suprasellar region appear unremarkable. The normal signal voids within the major intracranial vessels appear maintained. No abnormal focus of enhancement is seen within the brain. ORBITS: The visualized portion of the orbits demonstrate no acute abnormality. SINUSES: There are retention cysts versus polyps in the left maxillary sinus. There is scattered mild mucosal thickening in the paranasal sinuses. There are mild bilateral mastoid effusions. BONES/SOFT TISSUES: The bone marrow signal intensity appears normal. The craniocervical junction is normal in appearance. MR/MR head/brain wo/w con IMPRESSION: No acute intracranial abnormality. No mass lesion or abnormal intracranial enhancement to suggest intracranial metastasis. Mild to moderate parenchymal volume loss. Mild to moderate chronic microvascular disease. Mild bilateral mastoid effusions and sinus mucosal disease." Echo: "Impressions: LVEF 60%. Normal left ventricular size and systolic function. Indeterminate left ventricular diastolic function. Normal right ventricular size and function. Mild aortic regurgitation. No pulmonary hypertension." Abd U/S: "FINDINGS: LIVER: The liver demonstrates normal echogenicity without evidence of intrahepatic biliary ductal dilatation. BILIARY SYSTEM: Gallbladder is unremarkable without evidence of pericholecystic fluid, wall thickening or stones. Negative sonographic Avalos's sign. Common bile duct is within normal limits measuring 6 mm diameter smoothly tapering into the pancreatic head. RIGHT KIDNEY: Normal, measuring 11.4 x 3.9 x 4.7 cm. No hydronephrosis or intrarenal calculus. PANCREAS: Visualized portions of the pancreas are unremarkable. OTHER: No evidence of right upper quadrant ascites. US/US gall bladder IMPRESSION: Normal right upper quadrant ultrasound." Date of admission: 01/03/17 18:07 Primary care physician: Aram Jackson MD Consults: 01/04/17 00:09 Consult to Lead Web Developer [CONS] Routine Reason for SW Consult: frequent falls at home 01/04/17 11:57 Consult to Occupational Therapy [CONS] Routine Comment: Evaluate, develop and implement POC Reason for Consult: frequent falls Consult to Physical Therapy [CONS] Routine Comment: Evaluate, develop and implement POC Reason for Consult: frequent falls Discharging clinician: Luis Yang Anticipated date of discharge: 01/06/17 - Patient Status Disposition: Home Health Service Condition: Good Functional capacity at discharge: uses cane/walker Overall status at discharge: patient is progressing back to baseline - Discharge Instructions Instructions: Syncope (DC), Depression (DC) Follow Up With: Aram Jackson MD [Primary Care Provider] - 01/11/17 2:15 pm Additional Instructions: Please Follow up with your Primary Care Provider as scheduled within 1 week of discharge Please Follow up with Gastroenterology as scheduled. Please restart all you home medications and take them as prescribed. Please Return to the hospital if you experience any new or worsening symptoms. - Diet and Activity Activity: as per physical therapy Diet: advance to your usual diet Interval History: Patient reports she is not Nauseous this morning. She reports being eager to go home and feeling well enough to go home. DIscussed that her Abd u/s showed no signs of gallbladder disease. Will have her follow up with GI. She was seen by Natalie KATZ previously for this issue. She reports having EGD and colonoscopy in May with them. Hospital course: Ms. Harrison is a 71 year old female c PMHx of Parkinsons, Arthritis, COPD, GERD, Depression, SCLC s/p Chemo/Radiation in 2012 in remission, reports to the hospital for Syncopal episode that happened yesterday. She was at home alone, she felt lightheaded like she was going to pass out, she sat down and reports thinking of lying down on the couch, but the next thing she remembered she was on the floor and there was vomit on the ground. Patient had CT Head, MRI head, Echo, CT C spine, EKG, and CXR all with out acute changes.Patient had orthostatics performed which were negative.Patient had carotid U/S 1 year ago which showed no plaque so was not repeated this admission. Patient had U/S of RUQ abd to look for cause of here N/V which have persisted for at least 9 months. We will have her follow up with GI for further evaluation. - Time Spent with Patient Total time spent providing and/or coordinating discharge services: 40 minutes - Constitutional Vitals: Temp Pulse Resp BP Pulse Ox 97.9 F 71 12 131/73 96 01/06/17 07:22 01/06/17 07:22 01/06/17 07:22 01/06/17 07:22 01/06/17 07:22 General appearance: Present: A&O X 3, no acute distress, answers questions appropriately - Head Head exam: Present: atraumatic, normocephalic - Eye Eye exam: Present: PERRL, sclera anicteric Pupils: Present: PERRL - ENT ENT exam: Present: mucous membranes moist - Neck Neck exam general surgery: Present: supple, trachea midline - Respiratory Respiratory exam: Present: CTAB. Absent: rales, rhonchi, wheezes - Cardiovascular Cardiovascular exam: Present: RRR, +S1, +S2. Absent: diastolic murmur, gallop, rubs, systolic murmur - GI/Abdominal GI/Abdominal exam: Present: normal bowel sounds, soft, tenderness (mild diffuse) - Extremities Exam Extremities exam: Absent: calf tenderness, cyanotic, pedal edema - Neurological Exam Neurological exam: Present: alert, CN II-XII intact, oriented X3, strengths equal and symetr throughout. Absent: facial droop, speech deficit - Psychiatric Psychiatric exam: Present: normal affect, normal mood - Skin Skin exam: Present: dry, intact, warm <Darling,Azam P - Last Filed: 01/06/17 13:55> Date of Encounter: 01/06/17 Procedures/tests Complete & Pending: Procedures Performed prior 72 hours Category Date Time Status GB ultrasound [US gall bladder] [US] Routine Exams 01/05/17 15:00 Completed MR head/brain wo/w con [MR] Routine MRI 01/04/17 07:54 Completed EV echocardiogram Routine Y 01/04/17 22:26 Completed Date of admission: 01/03/17 18:07 Primary care physician: Aram Jackson MD Consults: 01/04/17 00:09 Consult to Lead Web Developer [CONS] Routine Reason for SW Consult: frequent falls at home 01/04/17 11:57 Consult to Occupational Therapy [CONS] Routine Comment: Evaluate, develop and implement POC Reason for Consult: frequent falls Consult to Physical Therapy [CONS] Routine Comment: Evaluate, develop and implement POC Reason for Consult: frequent falls Hospital course: Ms. Harrison is a 71 year old female - Time Spent with Patient Total time spent providing and/or coordinating discharge services: - Constitutional Vitals: Temp Pulse Resp BP Pulse Ox 97.9 F 71 12 131/73 96 01/06/17 07:22 01/06/17 07:22 01/06/17 07:22 01/06/17 07:22 01/06/17 07:22 - Attending Attestation I examined this patient and my medical decision-making was reviewed with the Resident Physician. I agree with the documented findings, disposition and treatment plan as described except to the extent set forth below.
--- NOTE | 2017-01-06 08:16 | Physician Discharge Referral ---
<Luis Yang - Last Filed: 01/06/17 08:13> Home Health/Hosp Referral Info Transfer to: Home Health Provider in Charge Post Discharge: PCP - Diagnosis (1) Episode of syncope Priority: Primary Status: Acute (2) Nausea & vomiting Priority: Secondary Status: Chronic (3) Parkinson disease Priority: Secondary Status: Chronic (4) Depression Priority: Secondary Status: Chronic (5) Dementia Priority: Secondary Status: Chronic (6) Small cell lung cancer Priority: Secondary Status: Chronic - Respiratory Orders Smoking Cessation: Smoking cessation has been advised. For more information, call the [place] Tobacco Quit Line at 6-663-WZZP-NOW. - Diet/Nutrition Diet/Nutrition Orders: Regular - Services Needed Following services are medically necessary services: Nursing, Physical Therapy - Transfer Medications Home Medications: Lactose-Reduced Food [Ensure Original] 237 ml DAILY 01/28/15 [History] ALPRAZolam [Xanax 1 MG Tablet] 1 mg PO BID 03/02/16 [History] Carbidopa/Levodopa [Carbidopa-Levo 25-100 mg Odt] 2 each PO TID 03/02/16 [ History] Sertraline [Zoloft] 100 mg PO DAILY #90 tablet 04/10/16 [Rx] Donepezil [Aricept] 10 mg PO HS 06/29/16 [History] Atorvastatin [Lipitor] 10 mg PO HS #30 tablet 08/15/16 [Rx] Omeprazole [PriLOSEC] 40 mg PO DAILY 09/14/16 [History] Alendronate Sodium 70 mg PO QWEEK 01/03/17 [History] Ondansetron HCl 4 mg PO QID PRN 01/03/17 [History] Allergies/Adverse Reactions: 3 Allergy/AdvReac Type Severity Reaction Status Date / Time No Known Allergies Allergy Verified 09/14/16 14:17 Certification: Further, I certify that my clinical findings support that this patient is homebound (i.e. absences from home require considerable and taxing effort and are for medical reasons or worship services or infrequently or short duration when for other reasons) because: Homebound Reason: Patient requires assistance of a person or device to safely leave home, Leaving home requires considerable and taxing effort due to condition Attestation: My signature below is to certify that this patient is under my care and that I, or nurse practitioner, or a physician's congressional assistant working with me, has a face-to -face encounter with this patient. <Azam Hastings P - Last Filed: 01/06/17 13:56> - Respiratory Orders Smoking Cessation: Smoking cessation has been advised. For more information, call the [place] Tobacco Quit Line at 8-215-EUAX-NOW. Certification: Further, I certify that my clinical findings support that this patient is homebound (i.e. absences from home require considerable and taxing effort and are for medical reasons or worship services or infrequently or short duration when for other reasons) because: Attestation: My signature below is to certify that this patient is under my care and that I, or nurse practitioner, or a physician's congressional assistant working with me, has a face-to -face encounter with this patient.
[2017-01-06] MEDS: ALPRAZolam 1 MG TABLET PO SCH (09:58)
[2017-01-06] MEDS: Carbidopa/Levodopa 25/100 TABLET PO SCH (09:58)
== END 2017-01-06 10:24 | disposition home health service (06) ==
LOC: 3BNU 15:10 → EMEROO 15:10 → 3BNU 19:20
PROVIDERS: ADMIT Nurse Practitioner Family; ATTEND Nurse Practitioner Family